=== PATIENT | female | born 1990 | race Caucasian/White ===

== ENCOUNTER 2020-04-29 10:35 | Outpatient (CLI) | payer OTHER, SELFPAY ==
[2020-04-29 18:45] LABS: Basophils Percent Auto 0.3 % (0.2-1.2); Eosinophils Percent Auto 0.6 % (0-4.4); Hematocrit 35.5 % (37.0-47.0); Hemoglobin 11.7 g/dL (12.0-15.0); Immature Granulocyte Absolute 0.02 K/mm3 (0.00-0.031); Immature Granulocyte Percent A 0.3 % (0-0.5); Lymphocytes Absolute Auto 1.41 K/mm3 (0.9-3.2); Lymphocytes Percent Auto 20.6 % (18.3-44.2); Mean Corpuscular Hemoglobin 30.1 pg (26-34); Mean Corpuscular Volume 91.3 fl (80-100); Mean Platelet Volume 12.3 fl (7.4-10.4); Monocytes Absolute Auto 0.4 K/mm3 (0.1-0.6); Monocytes Percent Auto 5.3 % (2.6-8.5); Neutrophils Percent Auto 72.9 % (45.5-73.1); Platelet Count Result 200 k/mm3 (150-375); Red Blood Count 3.89 M/mm3 (4.2-5.4); Red Cell Distribution Width 12.7 % (11.5-14.5); White Blood Count 6.8 K/mm3 (4.5-10.0)
[2020-04-29 19:30] LABS: Thyroid Stimulating Hormone 0.734 uIU/mL (0.465-4.680)
[2020-04-29 19:31] LABS: Hepatitis B Surface Antigen Negative (Negative); Rubella IgG Antibody 23.5 IU/ML
[2020-04-29 19:33] LABS: Vitamin D 25 Hydroxy 44.4 ng/mL
[2020-04-29 19:41] LABS: HIV 1/2 Ab P24 Ag Result Negative (Negative)
[2020-04-29 19:47] LABS: Hepatitis C Virus Antibody Negative (Negative)
[2020-05-01 09:06] LABS: Rapid Plasma Reagin Non-Reactive (NonReactive)
== END 2020-04-29 10:36 | disposition home or self-care (01) ==
PROVIDERS: PCP Student in an Organized Health Care Education/Training Program; Visit Provider Student in an Organized Health Care Education/Training Program
DX: Z34.90 Encounter for supervision of normal pregnancy, unspecified, unspecified trimester (principal); Z3A.00 Weeks of gestation of pregnancy not specified
CPT/HCPCS: 36415; 82306; 84443; 85025; 86592; 86703; 86762; 86787; 86803; 86850; 86900; 86901; 87340; G0432

== ENCOUNTER 2020-09-06 07:53 | Outpatient (CLI) | payer OTHER, SELFPAY ==
[2020-09-06 19:21] LABS: Basophils Percent Auto 0.4 % (0.2-1.2); Eosinophils Absolute Auto 0.1 K/mm3 (0-0.3); Eosinophils Percent Auto 1.6 % (0-4.4); Hematocrit 33.6 % (37.0-47.0); Hemoglobin 10.5 g/dL (12.0-15.0); Immature Granulocyte Absolute 0.04 K/mm3 (0.00-0.031); Immature Granulocyte Percent A 0.6 % (0-0.5); Lymphocytes Absolute Auto 1.37 K/mm3 (0.9-3.2); Lymphocytes Percent Auto 19.8 % (18.3-44.2); Mean Corpuscular HGB Conc 31.3 g/dl (32-36); Mean Corpuscular Hemoglobin 29.5 pg (26-34); Mean Corpuscular Volume 94.4 fl (80-100); Mean Platelet Volume 12.7 fl (7.4-10.4); Monocytes Absolute Auto 0.4 K/mm3 (0.1-0.6); Monocytes Percent Auto 6.4 % (2.6-8.5); Neutrophils Absolute Auto 4.9 K/mm3 (1.3-6.7); Neutrophils Percent Auto 71.2 % (45.5-73.1); Platelet Count Result 135 k/mm3 (150-375); Red Blood Count 3.56 M/mm3 (4.2-5.4); Red Cell Distribution Width 12.6 % (11.5-14.5); White Blood Count 6.9 K/mm3 (4.5-10.0)
[2020-09-06 19:26] LABS: Glucose 1 Hour PP 50gm Dose 100 mg/dL
== END 2020-09-06 07:54 | disposition home or self-care (01) ==
LOC: ANHBWCLAB 07:55
PROVIDERS: PCP Student in an Organized Health Care Education/Training Program; Visit Provider Student in an Organized Health Care Education/Training Program
DX: Z34.82 Encounter for supervision of other normal pregnancy, second trimester (principal); Z3A.00 Weeks of gestation of pregnancy not specified
CPT/HCPCS: 36415; 82947; 85025

== ENCOUNTER 2020-09-13 09:25 | Observation (INO) | payer OTHER, SELFPAY ==
[2020-09-13] VITALS (8 sets, daily range): BP systolic 90–112; BP diastolic 53–69; PULSE 78–106; BMI 23.5
--- NOTE | 2020-09-13 09:50 | OBADM ---
This patient, Della Kenyon, admitted to the OB room [facility] for observation. Patient/family oriented to hospital policies and general routines including ID bracelet, bed and alarms, visiting hours, pain management, procedures, bathroom and other care routines, personal items, smoking policy, room service/diet, and visiting hours. Patient/Family are encouraged to report perceived risks to care and to ask questions if they do not understand what they are told or what they should do.
[2020-09-13 10:06] LABS: Add Urine Microscopic? YES; Appearance Urine Cloudy (Clear); Bacteria Urine 2+ /hpf; Bilirubin Urine Negative (Negative); Blood Urine Negative (Negative); Color Urine Yellow (Yellow); Glucose Urine UA Negative (Negative); Ketones Urine Negative (Negative); Leukocyte Esterase Ur 3+ LEU/UL (NEGATIVE); Mucus Urine Rare /lpf; Nitrate Urine Negative (Negative); Protein Urine Negative (Negative); RBC Urine 0-2 /hpf (0-2); Specific Grav Ur 1.012 (1.001-1.035); Squamous Epithelial Cell Urine Many /hpf (Few); Urobilinogen Urine Negative mg/dL (<2.0)
--- NOTE | 2020-09-13 11:32 | PC.NURSE ---
Dr Diaz notified of contractions and UA results. Orders received.
[2020-09-13] MEDS: TERBUTALINE SULFATE 1 MG/ML VIAL 0.25 MG SUB-Q (11:49)
--- NOTE | 2020-10-06 14:27 | P.PNOB_ITS ---
OB - Triage/Final Diagnosis Visit Information Comments/Additional reasons for admission: I have assessed the risk for this patient, Della Kenyon, and determined that she would benefit from observation care. Evaluation Laboratory results: Laboratory Tests 09/13/20 09:47 Urine Color Yellow Urine Appearance Cloudy H Urine pH 7.0 Ur Specific [place] 1.012 Urine Protein Negative Urine Glucose (UA) Negative Urine Ketones Negative Ur Blood (Man) Negative Urine Nitrate Negative Urine Bilirubin Negative Urine Urobilinogen Negative Ur Leukocyte Esterase 3+ H Urine RBC 0-2 Urine WBC 7-9 H Ur Squamous Epith Cells Many H Urine Bacteria 2+ H Hyaline Casts 1-2 Urine Mucus Rare Final Diagnosis (1) contractions: Code(s): O47.00 - False labor before 37 completed weeks of gestation, unspecified trimester Status: Acute
== END 2020-09-13 13:55 | disposition home or self-care (01) ==
PROVIDERS: Admitting Provider Student in an Organized Health Care Education/Training Program; Visit Provider Student in an Organized Health Care Education/Training Program
DX: O47.00 False labor before 37 completed weeks of gestation, unspecified trimester (principal); Z3A.00 Weeks of gestation of pregnancy not specified
CPT/HCPCS: 81001; 87086; 96372; G0378; G0379; J3105

== ENCOUNTER 2020-09-16 19:15 | Observation (INO) | payer OTHER, SELFPAY ==
[2020-09-16 19:30] VITALS: BP 104/66; PULSE 87
[2020-09-16 19:36] VITALS: RESP 18; TEMP 36.7
[2020-09-16 20:00] VITALS: BMI 23.4
[2020-09-16] MEDS: NIFEdipine 10 MG CAPSULE PO (20:12)
[2020-09-16 20:15] VITALS: BP 101/66; PULSE 95
[2020-09-16 20:20] VITALS: BP 97/59; PULSE 88
[2020-09-16 20:40] VITALS: BP 98/64; PULSE 76
[2020-09-16 21:00] VITALS: BP 95/61; PULSE 88
--- NOTE | 2020-10-04 15:09 | PM.OBTRLD ---
OB - Triage/Final Diagnosis Visit Information Comments/Additional reasons for admission: I have assessed the risk for this patient, Della Kenyon, and determined that she would benefit from observation care. Final Diagnosis (1) contractions: Code(s): O47.00 - False labor before 37 completed weeks of gestation, unspecified trimester Status: Acute
== END 2020-09-16 21:45 | disposition home or self-care (01) ==
PROVIDERS: Admitting Provider Obstetrics & Gynecology; Visit Provider Obstetrics & Gynecology
DX: O47.03 False labor before 37 completed weeks of gestation, third trimester (principal); Z3A.33 33 weeks gestation of pregnancy
CPT/HCPCS: A9270; G0378; G0379

== ENCOUNTER 2020-10-05 13:27 | Outpatient (CLI) | payer OTHER, SELFPAY ==
[2020-10-05 20:06] LABS: Basophils Percent Auto 0.4 % (0.2-1.2); Eosinophils Absolute Auto 0.1 K/mm3 (0-0.3); Eosinophils Percent Auto 1.6 % (0-4.4); Hematocrit 33.6 % (37.0-47.0); Hemoglobin 10.5 g/dL (12.0-15.0); Immature Granulocyte Absolute 0.04 K/mm3 (0.00-0.031); Immature Granulocyte Percent A 0.4 % (0-0.5); Lymphocytes Absolute Auto 1.54 K/mm3 (0.9-3.2); Lymphocytes Percent Auto 17.3 % (18.3-44.2); Mean Corpuscular HGB Conc 31.3 g/dl (32-36); Mean Corpuscular Hemoglobin 29.2 pg (26-34); Mean Corpuscular Volume 93.6 fl (80-100); Mean Platelet Volume 12.9 fl (7.4-10.4); Monocytes Absolute Auto 0.6 K/mm3 (0.1-0.6); Monocytes Percent Auto 6.6 % (2.6-8.5); Neutrophils Absolute Auto 6.6 K/mm3 (1.3-6.7); Neutrophils Percent Auto 73.7 % (45.5-73.1); Platelet Count Result 130 k/mm3 (150-375); Red Blood Count 3.59 M/mm3 (4.2-5.4); Red Cell Distribution Width 13.8 % (11.5-14.5); White Blood Count 8.9 K/mm3 (4.5-10.0)
[2020-10-05 20:53] LABS: HIV 1/2 Ab P24 Ag Result Negative (Negative)
[2020-10-06 08:36] LABS: Rapid Plasma Reagin Non-Reactive (NonReactive)
== END 2020-10-05 13:28 | disposition home or self-care (01) ==
LOC: ANHBWCLAB 13:28
PROVIDERS: Visit Provider Student in an Organized Health Care Education/Training Program
DX: Z34.90 Encounter for supervision of normal pregnancy, unspecified, unspecified trimester (principal); Z3A.00 Weeks of gestation of pregnancy not specified
CPT/HCPCS: 36415; 85025; 86592; 86703; G0432

== ENCOUNTER 2020-10-12 19:00 | Inpatient (IN) | payer OTHER, SELFPAY ==
[2020-10-12] VITALS (77 sets, daily range): BP systolic 87–126; BP diastolic 51–74; PULSE 64–100; RESP 18; TEMP 36.3–37.6; O2SAT 97–100; BMI 24.9
[2020-10-12 19:40] LABS: Basophils Percent Auto 0.3 % (0.2-1.2); Eosinophils Absolute Auto 0.1 K/mm3 (0-0.3); Eosinophils Percent Auto 0.8 % (0-4.4); Hematocrit 32.5 % (37.0-47.0); Hemoglobin 10.6 g/dL (12.0-15.0); Immature Granulocyte Absolute 0.02 K/mm3 (0.00-0.031); Immature Granulocyte Percent A 0.3 % (0-0.5); Immature Platelet Fraction Pct 14.6 % (0.9-11.2); Lymphocytes Absolute Auto 1.32 K/mm3 (0.9-3.2); Lymphocytes Percent Auto 16.6 % (18.3-44.2); Mean Corpuscular HGB Conc 32.6 g/dl (32-36); Mean Corpuscular Hemoglobin 29.5 pg (26-34); Mean Corpuscular Volume 90.5 fl (80-100); Mean Platelet Volume 13.3 fl (7.4-10.4); Monocytes Absolute Auto 0.4 K/mm3 (0.1-0.6); Monocytes Percent Auto 5.4 % (2.6-8.5); Neutrophils Absolute Auto 6.1 K/mm3 (1.3-6.7); Neutrophils Percent Auto 76.6 % (45.5-73.1); Platelet Count Result 136 k/mm3 (150-375); Red Blood Count 3.59 M/mm3 (4.2-5.4)
[2020-10-12] MEDS: FAMOTIDINE 20 MG/2 ML VIAL IV PUSH (20:10)
[2020-10-12] MEDS: LACTATED RINGERS 1,000 ML 125 ML IV CONT ×2 (20:14→20:16)
--- NOTE | 2020-10-12 20:16 | WPDANESEPPF ---
Anes - Initial Pre Proc Eval Procedure: labor epidural Date/Time: 10/12/20 20:16 Surgeon: Sharon Reilly MD Pre Op Diagnosis: labor pain Pre Op Diagnosis: Labor Patient Data Age: 30 Gender: F Height: Weight: Last Vital Signs Pulse 82 10/12/20 20:15 BP 118/68 10/12/20 20:15 Pulse Ox 100 10/12/20 20:14 Allergies Allergy/AdvReac Type Severity Reaction Status Date / Time PINE NEEDLE OIL Allergy Intermediate SWELLING,DIFFICULTLY Uncoded 10/05/20 15:29 BREATHING Home Medications Medication Instructions Recorded Confirmed Type prenat.vits,luis,zhb-gixk-tmkif 1 tablet PO DAILY 03/04/20 08/18/20 History famotidine 20 mg tablet 20 mg PO DAILY 10/12/20 History Laboratory Tests 10/12/20 10/12/20 19:33 19:33 WBC 8.0 K/mm3 K/mm3 (4.5-10.0) RBC 3.59 M/mm3 L M/mm3 (4.2-5.4) Hgb 10.6 g/dL L g/dL (12.0-15.0) Hct 32.5 % L % (37.0-47.0) MCV 90.5 fl fl (80-100) MCH 29.5 pg pg (26-34) MCHC 32.6 g/dl g/dl (32-36) RDW 13.0 % % (11.5-14.5) Plt Count 136 k/mm3 L k/mm3 (150-375) MPV 13.3 fl H fl (7.4-10.4) Immature Gran % (Auto) 0.3 % % (0-0.5) Neut % (Auto) 76.6 % H % (45.5-73.1) Lymph % (Auto) 16.6 % L % (18.3-44.2) [place] % (Auto) 5.4 % % (2.6-8.5) Eos % (Auto) 0.8 % % (0-4.4) Baso % (Auto) 0.3 % % (0.2-1.2) Lymph # (Auto) 1.32 K/mm3 K/mm3 (0.9-3.2) [place] # (Auto) 0.4 K/mm3 K/mm3 (0.1-0.6) Eos # (Auto) 0.1 K/mm3 K/mm3 (0-0.3) Baso # (Auto) 0.0 K/mm3 K/mm3 (0.0-0.1) Abs Immat Gran (auto) 0.02 K/mm3 K/mm3 (0.00-0.031) Absolute Neuts (auto) 6.1 K/mm3 K/mm3 (1.3-6.7) Absolute Nucleated RBC 0.0 K/mm3 K/mm3 (0.0-0.012) Nucleated RBC % 0.0 % % (0.0-0.2) % Immature Plt Fraction 14.6 % H % (0.9-11.2) RPR Pending Patient hx anesthesia problems: none Family hx anesthesia problems: none PMFSH Past Medical History Medical History Anxiety Missed x2 02/2016, 10/2015 Vaginal delivery x2 08/02/2018 03/27/2017 Family History Family History Mother Anemia Grandparent Acute myocardial infarction Family history of cardiovascular disease Sibling Hypothyroidism Social History Social History Smoking status: Never smoker Alcohol intake: current Alcohol use details: 0ne to two drinks per month. Substance use: unknown Spiritual care concerns: No Anes - Eval Final PreProcedure Day of Procedure 10/12/20 20:16 Patient weight: normal Heart: regular rate and rhythm Lungs: clear to auscultation and normal air movement Airway: Mallampati scale class II Neurological: alert and oriented ASA classification: II Emergent: no Anesthetic plan: proceed Anesthesia type and monitoring: regional epidural and standard monitoring Informed Consent: The patient's anesthetic plan and its attendant risks and benefits were discussed with the patient/family/POA. Questions were solicited and answers provided to the satisfaction of the patient/family/POA.
--- NOTE | 2020-10-12 20:19 | LDADM ---
This patient, Della Kenyon, was admitted to Labor/Delivery/Recovery 105 on 10/12/20 at 19:00. Plans for labor, pain management and were discussed with patient. Patient/family oriented to hospital policies and general routines including ID bracelet, bed and alarms, visiting hours, pain management, procedures, bathroom and other care routines, personal items, smoking policy, room service/diet and guest tray routines, infant security routines, and visiting hours. Patient/Family are encouraged to report perceived risks to care and to ask questions if they do not understand what they are told or what they should do. See OBIX for further documentation.
--- NOTE | 2020-10-12 20:20 | PM.IMHP ---
H&P: HPI History of Present Illness Date/Time: 10/12/20 20:20 Patient is a 30yo LMP 01/18/20 currently 37w2d gestation with POLLO 10/31/20. Patient is dated by ultrasound on 03/09/20 at 6 weeks gestation. Patient presents to L&D with complaints of contractions. She reports frequent contractions for past few days. She was seen in office for routine visit this morning and was noted to be 1 cm dilated. Upon arrival to L&D, patient was 4cm dilated. Decision made to admit patient in active labor. Denies any vaginal bleeding or leakage of fluid. Reports good movement. Chief Complaint: Labor Review of Systems Review of Systems: All systems reviewed & are unremarkable except as noted in HPI and below Constitutional: Constitutional: Reports as per HPI, Reports no additional constitutional complaints, Denies chills, Denies fever(s), Denies headache(s) and Denies night sweats Eyes: Eyes: Reports as per HPI and Reports no additional eye complaints ENT: Reports system reviewed and no additional complaints, except as documented, Reports as per HPI, Reports Normal hearing present and Denies headache(s) Cardiovascular: Cardiovascular: Reports as per HPI, Reports no additional cardiovascular complaints, Denies chest pain and Denies dyspnea Respiratory: Respiratory: Reports as per HPI, Reports no additional respiratory complaints, Denies cough and Denies dyspnea Gastrointestinal: Gastrointestinal: Reports as per HPI, Reports no additional gastrointestinal complaints, Denies abdominal pain, Denies change in bowel habits, Denies change in stool character, Denies nausea and Denies vomiting Genitourinary: Genitourinary: Reports no additional female genitourinary complaints, Reports as per HPI, Denies abnormal vaginal bleeding, Denies genital lesions, Denies hot flashes, Denies dyspareunia, Denies pelvic pain, Denies sexual dysfunction, Denies urinary incontinence, Denies vaginal discharge, Denies vaginal dryness and Denies vaginal odor Musculoskeletal: Musculoskeletal: Reports no additional musculoskeletal complaints and Reports as per HPI Integumentary/Breasts: Skin/Breast: Reports system reviewed and no additional complaints, except as docu, Reports as per HPI, Denies breast pain and Denies nipple discharge Neurologic: Reports system reviewed and no additional complaints, except as documented, Reports as per HPI, Reports Normal hearing present and Denies headache(s) Psychiatric: Psychiatric: Reports no additional psychiatric complaints, Reports as per HPI, Denies anxiety and Denies depression Endocrine: Endocrine: Reports no additional endocrine complaints and Reports as per HPI Hematologic/Lymphatic: Hematologic/Lymphatic: Reports no additional hematologic/lymphatic complaints and Reports as per HPI Allergic/Immunologic: Allergic/Immunologic: Reports no additional allergic/immunologic complaints and Reports as per HPI PMFSH Past Medical History Medical History Anxiety Missed x2 02/2016, 10/2015 Vaginal delivery x2 08/02/2018 03/27/2017 Family History Family History Mother Anemia Grandparent Acute myocardial infarction Family history of cardiovascular disease Sibling Hypothyroidism Social History Social History Smoking status: Never smoker Alcohol intake: current Alcohol use details: 0ne to two drinks per month. Substance use: unknown Spiritual care concerns: No Meds Home Medications and Allergies Home Medications Medication Instructions Recorded Confirmed Type prenat.vits,luis,tly-cjkk-arpys 1 tablet PO DAILY 03/04/20 08/18/20 History famotidine 20 mg tablet 20 mg PO DAILY 10/12/20 History Allergies Allergy/AdvReac Type Severity Reaction Status Date / Time PINE NEEDLE OIL Allergy Intermediate SWELLING,DIFFICULTLY Uncoded 08
--- NOTE | 2020-10-12 20:31 | WPDHPUPDATE1 ---
History and Physical Update Update Date/Time: 10/12/20 20:31 History and Physical has been reviewed, including an updated exam of the patient. There are NO changes in the patient's condition. Risks, benefits, and alternatives have been discussed and questions answered. Patient agrees to proceed with procedure.
[2020-10-12 23:35] LABS: HIV 1/2 Ab P24 Ag Result Negative (Negative)
[2020-10-13] VITALS (80 sets, daily range): BP systolic 78–114; BP diastolic 45–80; PULSE 60–112; RESP 16–18; TEMP 36.4–37.1; O2SAT 97–100
[2020-10-13] MEDS: LACTATED RINGERS 1,000 ML 125 ML IV CONT ×2 (00:40→03:22)
--- NOTE | 2020-10-13 03:24 | PM.OBPNLAB ---
Pain Control Date/time seen: 10/13/20 03:24 Patient doing well. Comfortable s/p epidural. SVE /-1. AROM performed. Clear fluid noted. EFM category 1. [employer] [employer] shows contractions q1-2 mins. Continue pitocin.
--- NOTE | 2020-10-13 04:06 | PM.OBPRVD ---
OB - Delivery Note Procedure Delivery date: 10/13/20 Procedure: Patient is a 30-year-old now who presented to labor and delivery on the evening of 10/12/2020 at 37 weeks 2 days gestation with complaints of contractions. Upon presentation to labor and delivery, patient was noted to be 4 cm dilated. Patient was admitted in active labor. Patient was uncomfortable and requested an epidural for pain management which was placed without difficulty. 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 Pitocin was started and slowly titrated. Patient continued to make slow, however, progressive cervical change. Artificial rupture membranes was performed at 3:17 a.m. Clear amniotic fluid was noted. Patient was 7 cm dilated at that time. Patient progressed to fully dilated quickly afterwards and was noted to be complete at 3:38 a.m. Patient was prepped and draped for delivery. Patient was encouraged to push and at 3:44 a.m., patient delivered head atraumatically and without difficulty in DIAMOND presentation. Occiput restituted to maternal left side. With subsequent push, the infant's neck, shoulders, and rest of body delivered without difficulty. The infant's nose and mouth were suctioned with bulb suction. The was crying spontaneously. The infant was placed on maternal abdomen where care was assumed by awaiting nursing staff. Delayed cord clamping was performed for approximately 60 seconds. The voided spontaneously. The cord was clamped and cut. A segment of cord was collected for cord gases. Cord blood was collected. The placenta was delivered spontaneously and intact. Uterine fundus was noted to be firm with massage. On inspection, no lacerations were noted. Estimated blood loss for entire delivery was 100 cc. The was a live-born female , Apgars 8 and 9, weight pending. Both mother and baby doing well at end of delivery. Delivery augmentation: rupture of membranes and pitocin Delivery monitor: external FHT and external uterine Route of delivery: Laceration Description: None Specimen: Yes (cord blood and cord gases) Quantitative Blood Loss (ml): 100 Anesthesia type: Epidural Disposition: floor Complications: No immediate complications [place] Baby Date of : 10/13/20 Time of : 03:44 Weeks of gestation at delivery: 37 (37.3) Infant gender: Female presentation: vertex position: Left Occiput Anterior Placenta delivery description: Spontaneous cord vessel description: 3 Vessels, Clamped/Cut and Delayed Cord Clamping (x60s) score one minute: 8 score five minutes: 9
[2020-10-13] MEDS: OXYTOCIN 30 UNITS/NS 500 ML 30 UNITS/500 ML BAG 125 UNITS IV CONT (04:22)
[2020-10-13] MEDS: WITCH HAZEL 40 PADS 1 PAD TOPICAL (05:43)
[2020-10-13] MEDS: BENZOCAINE 20% AER SPR (*SP) 56 GM CAN 1 SPRAY TOPICAL (05:43)
[2020-10-13] MEDS: MULTIVIT/MIN/PREN/FOL AC/IRON TABLET 1 TAB PO (08:45)
[2020-10-13] MEDS: IBUPROFEN 600 MG TABLET PO ×3 (08:45→21:57)
[2020-10-13] MEDS: DOCUSATE SODIUM 100 MG CAPSULE PO (08:45)
--- NOTE | 2020-10-13 09:05 | PC.NURSE ---
Mother called out for assist with feeding, reporting is sleepy. Demonstrated stimulation techniques to wake for feeding. easily awoken with feeding cues noted. is able to freely thrust tongue past gum ridge and flange both lips. Skin is intact on both nipples, no redness and bruising noted. Discussed the near term and possible precautions of weak latch, sleepy feedings, needing to wake each feeding, inability to maintain latch and poor milk transfer which increases chance for increased weight loss, jaundice and low milk supply. Stressed the importance of adequate breast stimulation by pumping, self-expression and skin to skin. Mother reports last child was 37 weeks acting the same. Reviewed infant feeding cues, frequencies, duration of feedings, feeding elimination flow sheet, and signs of adequate intake. Assisted with infant to breast. Reviewed positioning/alignment in cross cradle, holding breast in ?U? hold and guided asymmetrical latch on. Discussed rational for each. Once was able to latch correctly mother switched to cradle position. Reviewed signs of a correct latch, effective nursing and suck swallow ratio. nursed eagerly with steady draws and occasional swallowing for bursts followed with long pausing. Reviewed the difference of effective vs ineffective nursing. Suggested mother stimulate while feeding to increase stimulation, increase intake and to assist with maintaining deep latch. would slip to shallow latch, mother reports tenderness. Demonstrated how to adjust latch more deeply while feeding. Advised holding in cross cradle would assist with maintaining deep latch. Mother reports she can feel change in latch and has no tenderness. Nipple care reviewed of lanolin after feedings, warm compresses as needed.
[2020-10-13 09:27] LABS: Rapid Plasma Reagin Non-Reactive (NonReactive)
[2020-10-13] MEDS: LANOLIN (LANSINOH) 7.5 GM CREAM 1 APPLIC TOPICAL (11:45)
[2020-10-13] MEDS: ACETAMINOPHEN 325 MG TABLET 650 MG PO ×2 (15:55→21:57)
[2020-10-14] VITALS: BP 95/53; PULSE 71; RESP 16; TEMP 36.6; O2SAT 97
[2020-10-14] MEDS: IBUPROFEN 600 MG TABLET PO ×2 (03:48→09:42)
[2020-10-14] MEDS: ACETAMINOPHEN 325 MG TABLET 650 MG PO ×2 (03:48→09:41)
[2020-10-14 04:56] LABS: Hematocrit 30.3 % (37.0-47.0); Hemoglobin 9.7 g/dL (12.0-15.0)
[2020-10-14 07:35] VITALS: BP 99/67; PULSE 81; RESP 16; TEMP 36.3; O2SAT 99
--- NOTE | 2020-10-14 08:37 | WPDANLDPN2 ---
Anes-Prog Note L&D Date/Time: 10/14/20 08:37 Comfortable throughout: labor and delivery Neuraxial method: epidural Epidural/Spinal procedure site: clean & non-tender Neuro status: Neuro function grossly intact. Cardiovascular status: normal Respiratory status: normal Airway patency: baseline Mental status: baseline Post-Op hydration status: normal Vital Signs: Last Vital Signs Temp 36.3 C L 10/14/20 07:35 Pulse 81 10/14/20 07:35 Resp 16 10/14/20 07:35 BP 99/67 L 10/14/20 07:35 Pulse Ox 99 10/14/20 07:35 Pain score (VAS): 0 Post-procedural complaints: none Patient feedback: Patient satisfied with anesthetic care.
--- NOTE | 2020-10-14 09:05 | PM.OBPNVD ---
OB - PN: Subj Subjective Date/time seen: 10/14/20 09:05 Patient doing well this morning. Reports moderate cramping, however, pain well controlled medication. Minimal lochia. Ambulating without difficulty. OB - PN: Obj Data Labs CBC & Chem 7: 10/14/20 03:47 Labs: Laboratory Results - last 24 hr 10/12/20 10/14/20 19:33 03:47 Hgb 9.7 L Hct 30.3 L RPR Non-reactive OB - PN A/P Assessment and Plan (1) Normal spontaneous vaginal delivery: Code(s): O80 - Encounter for full-term uncomplicated delivery Status: Acute Assessment and Plan: PPD#1 doing well continue routine care dc home today emergency precautions reviewed Time Spent With Patient Time: Total time spent is greater than 50% in coordination of care (as documented) at patient's floor/unit and/or counseling patient: Exam Const: General: cooperative, healthy appearing, comfortable and no acute distress GI: Inspection: non-distended GI Palp: Yes Soft to palpation and No Tenderness to palpation present (GI) Other: fundus firm below umbilicus Extrem: Right lower extremity: no edema Left lower extremity: no edema Other: no calf tenderness
--- NOTE | 2020-10-14 09:12 | PM.OBDSVD ---
DS: Admitting Diagnosis Admitting Diagnosis Labor OB - DS: Summary OB Procedures : None OB Procedures Intrapartum: Spontaneous Vag Delivery OB Procedures: : None Time Spent with Patient Time attestation: Total time spent providing and/or coordinating discharge services: DS: Data Data Completed and Pending Labs on day of discharge: Labs from last 24 hours 10/14/20 10/12/20 03:47 19:33 Hgb 9.7 L Hct 30.3 L RPR Non-reactive Discharge Plan Discharge Attending physician on discharge: Sharon Reilly Discharging Clinician: Sharon Reilly Anticipated Discharge Date/Time: 10/14/20 09:13 Patient Disposition: Home, Self-Care Activity: as tolerated and pelvic rest Diet: regular Discharge Instructions: Call office ([phone]) to schedule a visit in 4-6 weeks. You may take Ibuprofen 600mg every 6 hours as needed for pain. Pain medication may make you constipated. It may be helpful to take an vrdq-jeu-[id number] stool softener, such as Colace and/or Senokot, along with the pain medication to help lessen constipation. Call office or go to ED for pain not controlled with medication, headache, chest pain, shortness of breath, fever, chills, persistent nausea or vomiting, severe abdominal pain, heavy vaginal bleeding >2 pads/hour, foul vaginal discharge or odor, or problems with your breasts. Education: Mom and Baby Guide Given to: Mother Follow-Up: Call your delivering provider's office for an appointment to be seen in: 4-6 Weeks Mom and baby should come to the [facility] for the follow-up appointment. Appointment Date/Time:Thursday, October 15, 2020 at 11:00 am What to expect at your follow-up visit: Blood Pressure Check Physical Assessment Call [phone] if you are unable to keep your appointment time. BREAST CARE: * Wear a snug supportive bra. * For engorgement discomfort: Breast Feeding: * Apply warm moist washcloths * Express milk as needed to relieve engorgement * Wear loose clothing * For sore nipples: * Identify correct latch-on * Apply warm moist washcloths before and after nursing * Air dry nipples after nursing * May apply Lansinoh cream to nipples EPISIOTOMY/PERINEAL CARE: * Until bleeding stops, use your noam bottle after urinating * Change your pad frequently throughout the day * You may take sitz baths several times a day (fill your bathtub with warm water and soak for 20 minutes.) Do NOT bathe in the water * No tub baths until seen by your physician - You may shower ACTIVITY: * Rest as much as possible. * Do not exercise or lift anything heavier than your baby (such as laundry or other children.) * Avoid stairs or driving as much as possible. * Do not put anything into the vagina. No douching, tampons, or sexual activity until seen by physician. NOTIFY PHYSICIAN IF YOU HAVE ANY QUESTIONS OR IF ANY OF THE FOLLOWING SYMPTOMS OCCUR: * If your vaginal area becomes red, swollen, or more painful than what you have experienced in the hospital. * If your vaginal bleeding becomes foul smelling. * If your vaginal bleeding becomes more heavy than a period or if your bleeding changes from pink to bright red. However, you may pass an occasional walnut-sized clot once or twice for the first week . * If you experience a sharp, shooting pain in your calves. * If you discover a hard, reddened area on your breast or if you experience flu-like symptoms. DIET: * Eat regular, well-balanced meals. * Drink plenty of fluids daily. If , drink to thirst. Patient Instructions: Antibiotic Form, Vaginal Delivery (DC) Stand Alone Forms: General Discharge Information Follow-up/Referrals: Sharon Reilly MD [Physician] - Discharge Medications: Continued prenat.vits,luis,mjv-duui-bozbm Tablet 1 tablet PO DAILY RF: 0 Discontinued f
--- NOTE | 2020-10-14 09:25 | PC.NURSE ---
Observed mother is able to independently latch with appropriate positioning/alignment. She denies any nipple discomfort, is feeding as required and waking infant to feed if needed. has had at least 8 effective feedings in the past 24 hours, and is currently meeting outcomes for weight, output, jaundice and feeding frequencies. Mother states she feels confident to continue effective at home. Reviewed transition to breast milk, signs of adequate intake, and engorgement/relief. Instructed to call ICP if intake/output less than required. Reviewed regular medications mother is taking. Information provided per Traci. Reviewed community resources on the [facility] website and in the Mom/Baby guide. Information on outpatient services provided. Mother has no further questions at this time.
[2020-10-14 09:30] VITALS: PULSE 81; RESP 16; O2SAT 99
[2020-10-14] MEDS: DOCUSATE SODIUM 100 MG CAPSULE PO (09:41)
[2020-10-14] MEDS: POLYSACCHARIDE IRON COMPLEX 150 MG CAPSULE PO (09:42)
[2020-10-14] MEDS: MULTIVIT/MIN/PREN/FOL AC/IRON TABLET 1 TAB PO (09:42)
[2020-10-15 11:24] VITALS: BP 104/78; PULSE 84; RESP 18; TEMP 36.9
== END 2020-10-14 10:53 | disposition home or self-care (01) | DRG 807 ==
LOC: ANHLDR 20:00 → ANHOB2 10-13 07:06
PROVIDERS: Admitting Provider Student in an Organized Health Care Education/Training Program; Visit Provider Student in an Organized Health Care Education/Training Program
DX: O80 Encounter for full-term uncomplicated delivery (principal); Z37.0 Single live birth; Z3A.37 37 weeks gestation of pregnancy
CPT/HCPCS: 36415; 85014; 85018; 85025; 85055; 86592; 86703; 86850; 86900; 86901; A9270; G0432; J2590; J2795; J7120

== ENCOUNTER 2021-04-06 08:34 | Emergency (ER) | payer OTHER, SELFPAY ==
[2021-04-06 08:39] VITALS: BP 93/52; PULSE 90; RESP 18; TEMP 36.7; O2SAT 99
--- NOTE | 2021-04-06 08:46 | ED.FEVER ---
HPI - Fever General Chief Complaint: Upper Respiratory Infection Stated Complaint: fever tired head and body aches Time Seen by Provider: 04/06/21 08:40 Source: patient and RN notes reviewed History of Present Illness HPI Narrative: Patient is a 31-year-old female who presents the urgent care with complaints of fever, body aches and fatigue. Patient states that she went [place] this and started having symptoms on Saturday. States that no one else in the home has been ill. Patient denies any urinary symptoms, nausea, vomiting, diarrhea. Patient has been taking Tylenol for her fever which tends to help with the symptoms and that she spikes a fever of 102-103F. Patient has not recently had COVID nor has she had the vaccine. No other acute complaints. No acute distress noted. Patient read the plan of care. Some parts of this dictation were generated by voice recognition software and may contain typographical and/or grammatical inaccuracies. Related Data Home Medications Medication Instructions Recorded Confirmed No Home Medications 04/06/21 04/06/21 Allergies Allergy/AdvReac Type Severity Reaction Status Date / Time PINE NEEDLE OIL Allergy Intermediate SWELLING,DIFFICULTLY Uncoded 04/06/21 08:40 BREATHING Review of Systems Review of Systems: CONSTITUTIONAL: Reports of fever, chills, fatigue EYES: Denies visual changes, redness, or discharge. ENT: Denies rhinorrhea, congestion, sore throat, or otalgia. CARDIOVASCULAR: Denies chest pain, palpitations, or edema. RESPIRATORY: Denies cough or dyspnea. GASTROINTESTINAL: Denies abdominal pain, nausea, vomiting, or diarrhea. GENITOURINARY: Denies dysuria or hematuria. SKIN: Denies rash or itching. MUSCULOSKELETAL: Denies back pain, joint pain. Reports body aches NEUROLOGIC: Denies headache, numbness, or weakness. All other systems reviewed are negative, except as documented in HPI. [facility] Past Medical History Medical History (Updated 04/06/21 @ 09:09 by ROOSEVELT Cilfford) Anxiety Missed x2 02/2016, 10/2015 Vaginal delivery x3 08/02/2018 03/27/2017 Family History Family History Mother Anemia Grandparent Acute myocardial infarction Family history of cardiovascular disease Sibling Hypothyroidism Social History Social History Smoking status: Never smoker Alcohol intake: current Alcohol use details: 0ne to two drinks per month. Substance use: unknown Spiritual care concerns: No Comments At the time of my signature, I reviewed and agree with the nursing past medical, surgical, social, and family history. There is no relevant family history pertinent to the patient complaint. Exam Narrative: GENERAL: This is a well-nourished, well-developed patient, in no apparent distress. HEAD: normocephalic, atraumatic. EYES: PERRL. Sclera clear/white. Vision is grossly intact. EARS: External ears normal, auditory canals clear and without drainage, TMs normal without perforation. Hearing grossly intact. NOSE: External nose normal with no obvious nasal discharge, nares without redness, no rhinorrhea. THROAT: Mucous membranes moist, posterior pharynx clear. Mild postnasal drainage NECK: Neck supple CARDIOVASCULAR: Regular rate and rhythm without murmurs, gallops, or rubs. RESPIRATORY: Clear to auscultation. Breath sounds equal bilaterally. No wheezes, rales, or rhonchi. SKIN: warm, intact with no suspicious lesions or rash, good texture and turgor. NEURO: awake, alert, and oriented to person, place and time. There were no obvious focal neurologic abnormalities. EXTREMITIES: No clubbing, cyanosis, or edema. Course Course Level of Care: Express Care Visit Vital Signs Vital signs: Vital Signs Temperature 98.0 F 04/06/21 08:39 Pulse Rate 90 04/06/21 08:39 Respiratory Rate 18 04/06/21 08:39 Blood Pr
[2021-04-07 13:01] LABS: SARS-CoV-2 RNA PCR Positive
== END 2021-04-06 09:11 | disposition home or self-care (01) ==
PROVIDERS: Emergency Provider Nurse Practitioner Family
DX: U07.1 COVID-19 (principal)
CPT/HCPCS: 87804; 99213; C9803; G0463; U0003; U0005

== ENCOUNTER 2021-09-20 23:35 | Emergency (ER) | payer OTHER, SELFPAY ==
[2021-09-20 23:36] VITALS: BP 108/64; PULSE 95; RESP 18; TEMP 37; O2SAT 99
--- NOTE | 2021-09-21 02:25 | ED.EAR ---
HPI - Ear Problem General Chief complaint: Ear Stated complaint: earache Time Seen by Provider: 09/21/21 00:03 History of Present Illness HPI Narrative: Patient is a 31-year-old female here for evaluation of right ear pain for the past several days. The pain came on after she was [place]. She was evaluated in urgent care facility upon symptom onset, was given eardrops, but states that the pain is still present. Denies relief after ibuprofen or Tylenol. Denies any fevers, chills, nausea, vomiting, decreased hearing, tinnitus. She is not diabetic. Related Data Home Medications Medication Instructions Recorded Confirmed [id number] 3.5 drp 09/20/21 mg-10,000 unit/mL-1 % ear drops,susp Allergies Allergy/AdvReac Type Severity Reaction Status Date / Time PINE NEEDLE OIL Allergy Intermediate SWELLING,DIFFICULTLY Uncoded 09/20/21 23:43 BREATHING Review of Systems Review of Systems: Gen.: Denies fevers or chills Eyes: Reports ear pain ENT: Denies congestion Respiratory: Denies shortness of breath or cough CV: Denies chest pain or palpitations GI: Denies abdominal pain nausea, emesis or diarrhea denies burning, urgency, frequency or hematuria Musculoskeletal: Denies back pain or muscle pain Neuro: Denies numbness, tingling, weakness or focal weakness Skin: Denies rash Except as documented, all other systems reviewed and negative PMFSH Past Medical History Medical History Anxiety Missed x2 02/2016, 10/2015 Vaginal delivery x3 08/02/2018 03/27/2017 Family History Family History Mother Anemia Grandparent Acute myocardial infarction Family history of cardiovascular disease Sibling Hypothyroidism Social History Social History Smoking status: Never smoker Alcohol intake: current Alcohol use details: 0ne to two drinks per month. Substance use: unknown Spiritual care concerns: No Exam Narrative: Gen: Alert, oriented, no acute distress Eyes: EOMI, no icterus Ears: Pain with movement of tragus on the right. External ear canal is swollen, unable to visualize TM. Left TM is clear. No mastoid tenderness bilaterally. Pulm: Respirations even and unlabored, symmetric thorax expansion, no audible stridor or visible cyanosis CV: Regular rate per telemetry GI: No distension, no voluntary/involuntary guarding Neuro: AOx4, moves all extremities without apparent difficulty or weakness, follows commands Skin: No jaundice, no visible bruising, rashes, lesions or wounds on exposed skin Psych: Normal mood/affect, insight/judgement good, adequate fund of knowledge, recent/remote memory intact Course Vital Signs Vital signs: Vital Signs Temperature 98.6 F 09/20/21 23:36 Pulse Rate 95 09/20/21 23:36 Respiratory Rate 18 09/20/21 23:36 Blood Pressure 108/64 09/20/21 23:36 Pulse Oximetry 99 09/20/21 23:36 Oxygen Delivery Room Air 09/20/21 23:36 Temperature 98.6 F 09/20/21 23:36 Pulse Rate 95 09/20/21 23:36 Respiratory Rate 18 09/20/21 23:36 Blood Pressure 108/64 09/20/21 23:36 Pulse Oximetry 99 09/20/21 23:36 Oxygen Delivery Room Air 09/20/21 23:36 Medical Decision Making MDM Narrative Medical decision making narrative: 31-year-old female here for evaluation of continued right ear pain over the past several days with minimal relief from abx drop from UC. On exam it appears she has otitis externa; no mastoid tenderness to suggest mastoiditis, no immunocompromise history to suggest malignant otitis externa, doubt herpes zoster oticus. An ear wick was placed given that her external ear was swollen and drops were placed. Counselled on ear wick care. Will switch ear drop to different and will also provide oral antibiotics in case there is a compo
== END 2021-09-21 01:03 | disposition home or self-care (01) ==
PROVIDERS: Emergency Provider Emergency Medicine
DX: H60.91 Unspecified otitis externa, right ear (principal); H66.91 Otitis media, unspecified, right ear
CPT/HCPCS: 99283

== ENCOUNTER 2022-01-16 08:30 | Outpatient (RCR) | payer OTHER, SELFPAY ==
--- NOTE | 2022-01-02 10:00 | PTOPEVAL1 ---
Assessment and note entered by Barbie Leblanc DPT Evaluation Information Assessment Status Evaluation Reported Pain Level Pain Score 0: Self Report Additional Pain Score Comments Pt reports urinary incontinence. Noticed originally after her first and has increased in frequency since then. Reports she avoids anything that will cause incontinence like jumping, sneezing, intercourse. States volume is enough to go change her clothes after. 2018, 2018, and 2020 delivered babies- all vaginal deliveries , no complications. No other gynecological problems. Urinates 5 times a day and usually none at night. Can hold urine about 15 minutes before needing to void. BM 5 times a week, generally no pain but sometimes mild constipation. Also reports a history of pelvic pain with intercourse that started prior to her pregnancies, up to 7/10 highest. Assessment PT Clinical Summary The patient is presenting to skilled therapy with a progressing history of urinary incontinence and also reports a history of pelvic pain. She presents with decreased pelvic floor strength and endurance and pain with palpation, as well as decreased core strength which are contributing to her pain and her incontinence. She will highly benefit from skilled therapy to address her impairments and safely return to her prior level of function. Plan of Care Interventions Electrical Stimulation,Hot Pack/Cold Pack,Manual Therapy,Neuro Re-education,Patient/Caregiver Education, Therapeutic Activities,Therapeutic Exercise,Self-Care/Home Management These treatments will address the objective and functional deficits as defined above. The patient will be advanced safely and appropriately in order for the patient to progress towards his/her prior level of function. Additional exercises will be introduced and as well as a comprehensive home exercise program upon discharge, if needed, ?to ensure carryover of functional gains achieved in the clinic. This treatment plan has been reviewed and agreement upon by the patient.
--- NOTE | 2022-01-09 12:28 | PCPTNOTE ---
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
--- NOTE | 2022-01-23 12:37 | PCPTNOTE ---
Patient did not show up for scheduled appointment this date.
--- NOTE | 2022-03-27 15:35 | PTOPDC ---
Assessment and note entered by Barbie Leblanc, DPT Evaluation Information Assessment Status Discharge - Pt Not Present Assessment PT Clinical Summary Patient has not attended therapy since 01/15/22. Due to our attendance policy she will be discharged at this time. A new order will be required to resume therapy at a later date.
== END 2022-03-28 13:24 | disposition home or self-care (01) ==
LOC: ANHGOSHPT 08:30
PROVIDERS: PCP Family Medicine; Visit Provider Student in an Organized Health Care Education/Training Program
DX: R32 Unspecified urinary incontinence (principal)
CPT/HCPCS: 97110; 97112; 97161; 99199

== ENCOUNTER → 2022-01-17 14:03 | Outpatient (CLI) | payer OTHER, SELFPAY ==
--- NOTE | ~2022-01-17 | XR_ITS ---
EXAMINATION: XR chest 2V Exam Date/Time: 01/17/2022 14:00 POUND KEEPER HISTORY: R06.02 - Shortness of breath Comparison: None available. RESULT: Lines, tubes, and devices: None. Lungs and pleura: Ill-defined, patchy airspace opacities in the left lower lobe. Cardiomediastinal silhouette: Stable. Other: No acute osseous or upper abdominal finding. IMPRESSION: Left lower lobe opacities may reflect pneumonia in the appropriate clinical context. Reviewed, dictated and finalized at location K. D KEEPER IMPRESSION: Left lower lobe opacities may reflect pneumonia in the appropriate clinical con text.
[2022-01-17 13:40] VITALS: BP 99/70; PULSE 99; RESP 16; TEMP 36.9; O2SAT 99
== END ==
PROVIDERS: PCP Nurse Practitioner; Visit Provider Nurse Practitioner
DX: R06.02 Shortness of breath (principal); R91.8 Other nonspecific abnormal finding of lung field
CPT/HCPCS: 71046

== ENCOUNTER 2022-01-29 11:18 | Outpatient (CLI) | payer OTHER, SELFPAY ==
--- NOTE | ~2022-01-29 | CT_ITS ---
EXAMINATION: CT diagnostic chest w con DATE: 01/29/2022 11:34 INDICATION: Persistent cough. Pneumonia. TECHNIQUE: Computed tomography (CT) of the chest was performed with 75 cc Omnipaque 350 intravenous c ontrast. The dose-length product was 134.80 mGy-cm. Automated exposure control and iterative reconstruction technique were employed. COMPARISON: None FINDINGS: No significant vascular abnormality. No lymphadenopathy. No thoracic lymphadenopathy. Upper abdomen is unremarkable. No pneumothorax. No endobronchial lesions. No endobronchial lesions. No foc al airspace consolidation. No pneumothorax. No suspicious pulmonary nodules or masses. No endobronchi al lesions. No acute osseous abnormality. IMPRESSION: 1. No acute cardiopulmonary disease. Reviewed, dictated and finalized at location A. SER
== END 2022-01-29 11:19 | disposition home or self-care (01) ==
LOC: ANHIMG 11:19
PROVIDERS: PCP Nurse Practitioner; Visit Provider Nurse Practitioner
DX: J18.9 Pneumonia, unspecified organism (principal); R05.9 Cough, unspecified
CPT/HCPCS: 71260; Q9967

== ENCOUNTER 2022-05-21 08:21 | Emergency (ER) | payer OTHER, SELFPAY ==
[2022-05-21 08:32] VITALS: BP 98/71; PULSE 84; RESP 16; TEMP 36.3; O2SAT 100
[2022-05-21 08:33] VITALS: BP 98/71; PULSE 84; RESP 16; TEMP 36.3; O2SAT 100
--- NOTE | 2022-05-21 08:48 | ED.EAR ---
HPI - Ear Problem General Chief complaint: Ear Stated complaint: rt ear infection Time Seen by Provider: 05/21/22 08:48 Source: patient, RN notes reviewed and old records reviewed Mode of arrival: ambulatory Limitations: no limitations History of Present Illness HPI Narrative: 32-year-old female who presents to [facility] with complaints pain to her right ear. Patient states her right ear is always itching and she scratched her right ear and removed a small scab. She states since then she has had pain to the right ear with some tragal tenderness noted on exam. Patient has small red raised area at entrance of ear canal. Patient has not taken any [id number] medications for her discomfort. MD Complaint: ear pain Location: right ear Duration: constant Severity: moderate Discharge from ear: Reports no Treatment prior to arrival: none Related Data Allergies Allergy/AdvReac Type Severity Reaction Status Date / Time PINE NEEDLE OIL Allergy Intermediate SWELLING,DIFFICULTLY Uncoded 05/21/22 08:32 BREATHING Review of Systems Review of Systems: CONSTITUTIONAL: Denies malaise, chills, sweats, or fever. EYES: Denies visual changes, redness, or discharge. ENT: Reports no rhinorrhea, congestion, sinus pain,positive right otalgia denies sore throat. CARDIOVASCULAR: Denies chest pain, palpitations, or edema. RESPIRATORY: Reports no cough.? Denies dyspnea. GASTROINTESTINAL: Denies abdominal pain, nausea, vomiting, diarrhea SKIN: Denies rash or itching. MUSCULOSKELETAL: Denies myalgia. NEUROLOGIC: Denies headache. All systems reviewed & are unremarkable except as noted in HPI and below PMFSH Past Medical History Medical History Anemia Anxiety Encounter for visit size inconsistent with dates Low TSH level Miscarriage Missed x2 02/2016, 10/2015 Vaginal delivery x3 08/02/2018 03/27/2017 Family History Family History Mother Anemia Grandparent Acute myocardial infarction Family history of cardiovascular disease Sibling Hypothyroidism Social History Social History Smoking status: Never smoker Alcohol intake: current Alcohol use details: 0ne to two drinks per month. Substance use: unknown Substance use type: does not use Lack of Transportation: No Lack of Food: Never True Current Housing: I Have Housing Concerned About Future Housing: No Difficulty Paying Gas/Electric Bills: Decline to Answer Difficulty Paying for Meds: No Currently Unemployed: No Education: Associate Degree Difficulty w/ Childcare or Family Care: Decline to Answer Spiritual care concerns: No Comments At time of signature, agree with nursing past medical, surgical, social and family history. There is no relevant family history pertinent to the presenting complaint Exam Narrative: GENERAL: Well-appearing, well-nourished, and in no acute distress. HEAD: Normocephalic EYES: PERRLA, conjunctivae clear ENT: Nares clear, turbinates edematous and erythematous, clear discharge. Mucous membranes moist. TM pearly jacques with dull light reflex bilaterally; right tragal tenderness, small red raised area at entrance to ear canal right. Oropharynx erythematous without lesions. Tonsils not enlarged and without exudate, no drooling, no hoarseness, no trismus, uvula midline. NECK: Supple. No lymphadenopathy CHEST: Clear to auscultation, breath sounds equal. No wheezing, rhonchi, rales, or stridor. No respiratory distress, speaks in full sentences.SAO2 100% on room air HEART: Regular rate and rhythm. No murmur heard. SKIN: Warm, dry, no rash. NEURO: Alert and oriented x3. PSYCH: Normal mood and affect Course Course Emergency Course: Patient is aware of diagnosis, understands and agrees to treatment keyanna
== END 2022-05-21 09:06 | disposition home or self-care (01) ==
PROVIDERS: Emergency Provider Registered Nurse; PCP Nurse Practitioner
DX: H60.501 Unspecified acute noninfective otitis externa, right ear (principal)
CPT/HCPCS: 99213; G0463

== ENCOUNTER 2022-05-21 13:10 | Emergency (ER) | payer OTHER, SELFPAY ==
[2022-05-21 13:22] VITALS: BP 115/66; PULSE 101; RESP 20; TEMP 36.9; O2SAT 100
--- NOTE | 2022-05-21 16:28 | ED.GENADULT ---
HPI - General Adult General Chief complaint: Psychiatric Symptoms Stated complaint: Depression Time Seen by Provider: 05/21/22 16:17 Source: RN notes reviewed History of Present Illness HPI narrative: Patient presents emergency department from home for depression. Patient states that since the of her third daughter approximately year ago she has been having increasing issues with anxiety and depression. States that symptoms of gotten worse over the past several weeks with daily panic attacks states that she does have an appointment scheduled with a psychiatrist at the beginning of June but cannot wait that long states she is on fluoxetine for her depression. She denies any suicidal or homicidal ideation she states that she has been under increased stress at work as well she denies any fevers or chills or any recent illnesses Related Data Allergies Allergy/AdvReac Type Severity Reaction Status Date / Time PINE NEEDLE OIL Allergy Intermediate SWELLING,DIFFICULTLY Uncoded 05/21/22 08:32 BREATHING Review of Systems Review of Systems: Gen.: Denies fevers or chills ENT: Denies congestion Respiratory: Denies shortness of breath or cough CV: Denies chest pain or palpitations GI: Denies abdominal pain nausea, emesis or diarrhea Musculoskeletal: Denies back pain or muscle pain Neuro: Denies numbness, tingling, weakness or focal weakness Skin: Denies rash Psych: See HPI Except as documented, all other systems reviewed and negative PMFSH Past Medical History Medical History Anemia Anxiety Encounter for visit size inconsistent with dates Low TSH level Miscarriage Missed x2 02/2016, 10/2015 Vaginal delivery x3 08/02/2018 03/27/2017 Family History Family History Mother Anemia Grandparent Acute myocardial infarction Family history of cardiovascular disease Sibling Hypothyroidism Social History Social History Smoking status: Never smoker Alcohol intake: current Alcohol use details: 0ne to two drinks per month. Substance use: unknown Substance use type: does not use Lack of Transportation: No Lack of Food: Never True Current Housing: I Have Housing Concerned About Future Housing: No Difficulty Paying Gas/Electric Bills: Decline to Answer Difficulty Paying for Meds: No Currently Unemployed: No Education: Associate Degree Difficulty w/ Childcare or Family Care: Decline to Answer Spiritual care concerns: No Exam Narrative: APPEARANCE: No acute distress, nontoxic, resting in bed EYES: EOMI HEENT: Normocephalic, atraumatic, OMM RESPIRATORY: No respiratory distress Clear to auscultation bilaterally with no rhonchi wheezing or rales. CARDIOVASCULAR: Regular rate and rhythm without murmurs rubs or gallops. ABDOMINAL: Soft, nontender, nondistended, no rebound or guarding MUSCULOSKELETAl: Moves all extremities. No clubbing, cyanosis or edema. NEURO: Awake and alert. Following commands, speech normal, no focal deficits SKIN:: Warm, dry. No rashes lesions or abrasions PSYCHIATRIC: Anxious in appearance and tearful Course Course Emergency Course: Patient given Ativan with improvement anxiety Patient evaluated by [facility] crisis staff physical therapy assistant. At this time feel the patient may be discharged home with safety plan Patient reevaluated myself denies any suicidal homicidal ideation does have appointment with therapist this week Discussed with patient results of workup and diagnosis. Discussed need for follow-up with primary care, proper use of medication, and reasons to return to the emergency department. Patient understands and agrees to current treatment plan discussed with patient we will give small amount of Xanax Vital Signs Vital signs: Vital Signs Temperature 98.4 F 05/21/22 13:2
[2022-05-21 16:40] LABS: Basophils Percent Auto 0.4 % (0.2-1.2); Eosinophils Absolute Auto 0.1 K/mm3 (0-0.3); Eosinophils Percent Auto 1.6 % (0-4.4); Hematocrit 37.2 % (37.0-47.0); Hemoglobin 12.1 g/dL (12.0-15.0); Immature Granulocyte Absolute 0.02 K/mm3 (0.00-0.031); Immature Granulocyte Percent A 0.3 % (0-0.5); Lymphocytes Absolute Auto 2.12 K/mm3 (0.9-3.2); Lymphocytes Percent Auto 28.5 % (18.3-44.2); Mean Corpuscular HGB Conc 32.5 g/dl (32-36); Mean Corpuscular Volume 89.2 fl (80-100); Mean Platelet Volume 11.5 fl (7.4-10.4); Monocytes Absolute Auto 0.4 K/mm3 (0.1-0.6); Monocytes Percent Auto 5.4 % (2.6-8.5); Neutrophils Absolute Auto 4.8 K/mm3 (1.3-6.7); Neutrophils Percent Auto 63.8 % (45.5-73.1); Platelet Count Result 203 k/mm3 (150-375); Red Blood Count 4.17 M/mm3 (4.2-5.4); Red Cell Distribution Width 12.5 % (11.5-14.5); White Blood Count 7.4 K/mm3 (4.5-10.0)
[2022-05-21 16:45] LABS: Appearance Urine Clear (Clear); Bacteria Urine Rare /hpf; Bilirubin Urine Negative (Negative); Blood Urine Negative (Negative); Color Urine Yellow (Yellow); Glucose Urine UA Negative (Negative); Ketones Urine Negative (Negative); Leukocyte Esterase Ur 2+ LEU/UL (Negative); Nitrate Urine Negative (Negative); Non Pathogenic Casts 0-2; Protein Urine Negative (Negative); RBC Urine 0-2 /hpf (0-2); Squamous Epithelial Cell Urine Few /hpf (Few); pH Urine 6.5 (5.0-9.0)
[2022-05-21] MEDS: LORazepam (*CRX) 0.5 MG TABLET PO (16:49)
[2022-05-21 16:50] LABS: Ethanol < 10 mg/dL (<10)
[2022-05-21 16:58] LABS: Alanine Aminotransferase 18 U/L (6-35); Albumin Level 4.2 g/dL (3.5-5.1); Alkaline Phosphatase 52 U/L (38-126); Anion Gap 9 mmol/L (8-16); Aspartate Amino Transferase 19 U/L (14-36); Bilirubin,Total 0.4 mg/dL (0.2-1.3); Blood Urea Nitrogen 13 mg/dL (7-17); Calcium 8.6 mg/dL (8.4-10.2); Carbon Dioxide 25 mmol/L (22-30); Chloride 105 mmol/L (98-107); Estimated CRCL calculation 98 ml/min; Estimated Glomerular Filt Rate > 60; Glucose 112 mg/dL (65-110); Potassium 3.9 mmol/L (3.4-5.0); Sodium 139 mmol/L (137-145)
[2022-05-21 16:59] LABS: Add Urine Microscopic? YES
[2022-05-21 17:03] LABS: Amphetamine Screen Urine Negative (Negative); Barbiturate Screen Urine Negative (Negative); Benzodiazepines Screen Urine Negative (Negative); Cannabinoid Screen Urine Positive (Negative); Cocaine Screen Urine Negative (Negative); Methadone Screen Urine Negative (Negative); Opiate Screen Urine Negative (Negative); Phencyclidine Screen Urine Negative (Negative)
[2022-05-21 17:29] LABS: Thyroid Stimulating Hormone 0.878 uIU/mL (0.465-4.680)
[2022-05-21 18:57] VITALS: BP 118/64; PULSE 66; RESP 16; O2SAT 100
== END 2022-05-21 18:58 | disposition home or self-care (01) ==
PROVIDERS: Emergency Provider Emergency Medicine; PCP Nurse Practitioner
DX: F32.A Depression, unspecified (principal); F41.9 Anxiety disorder, unspecified; N39.0 Urinary tract infection, site not specified; Z86.2 Personal history of diseases of the blood and blood-forming organs and certain disorders involving the immune mechanism; Z79.899 Other long term (current) drug therapy
CPT/HCPCS: 36415; 80053; 80307; 81001; 81025; 84443; 85025; 87086; 99283; 99284; A9270

== ENCOUNTER 2023-01-24 16:18 | Emergency (ER) | payer OTHER, SELFPAY ==
--- NOTE | ~2023-01-24 | CT_ITS ---
EXAMINATION: CT abdomen pelvis w con DATE: 01/24/2023 20:31 INDICATION: Right lower quadrant abdominal pain and nausea TECHNIQUE: Computed tomography (CT) of the abdomen and pelvis was performed with 100 mL Omnipaque-350 intravenous contrast. Automated exposure control and iterative reconstruction technique were employe d. The dose-length product was 231.94 mGy-cm. COMPARISON: None FINDINGS: Lung bases are clear. Heart size is normal. No pericardial or pleural effusion. Liver, gallbladder, s pleen, pancreas, bilateral adrenal glands and kidneys are normal. Bowels including the appendix are n ormal. Bladder, uterus and left adnexa are unremarkable. There are prominent enhancing gonadal veins at the right adnexa which could be seen with pelvic vascular congestion syndrome. Minimal amount of l ikely physiologic free fluid in the cul-de-sac. No abscess or free intraperitoneal gas. No pathologic ally enlarged abdominal and pelvic lymphadenopathy. Left-sided L5 pars interarticularis defect. IMPRESSION: 1. No acute intra-abdominal/pelvic process. Specifically the appendix is normal. Reviewed, dictated and finalized at location A. REPAIRER TRIMMER DIES IMPRESSION: 1. No acute intra-abdominal/pelvic process. Specifically the appendix is normal .
--- NOTE | ~2023-01-24 | US_ITS ---
EXAMINATION: US pelvic complete w TV DATE: 01/24/2023 22:16 INDICATION: Right lower quadrant abdominal pain. TECHNIQUE: Multiple transabdominal and endovaginal sonographic images of the pelvis were obtained. COMPARISON: None. FINDINGS: The uterus measures 8.0 x 3.7 x 5.2 cm. The endometrial complex measures 13-14 mm in thickness. The right ovary measures 4.0 x 2.3 x 2.3 cm. The left ovary measures 2.8 x 2.7 x 1.[address] A few sub[address] anechoic follicles are seen in both ovaries. After flow with arterial waveforms identified in bot h ovaries on color Doppler. There is small amount of anechoic likely physiologic free fluid in the pe lvis. IMPRESSION: 1. Normal pelvic ultrasound. Reviewed, dictated and finalized at location A. [facility]
[2023-01-24 16:24] VITALS: BP 102/70; PULSE 83; RESP 14; TEMP 36.3; O2SAT 100
[2023-01-24 18:36] LABS: Basophils Absolute Auto 0.1 K/mm3 (0.0-0.1); Basophils Percent Auto 0.6 % (0.2-1.2); Eosinophils Absolute Auto 0.1 K/mm3 (0-0.3); Eosinophils Percent Auto 1.4 % (0-4.4); Hematocrit 38.8 % (37.0-47.0); Hemoglobin 12.4 g/dL (12.0-15.0); Immature Granulocyte Absolute 0.03 K/mm3 (0.00-0.031); Immature Granulocyte Percent A 0.3 % (0-0.5); Lymphocytes Absolute Auto 2.32 K/mm3 (0.9-3.2); Lymphocytes Percent Auto 23.7 % (18.3-44.2); Mean Corpuscular Hemoglobin 28.3 pg (26-34); Mean Corpuscular Volume 88.6 fl (80-100); Mean Platelet Volume 11.6 fl (7.4-10.4); Monocytes Absolute Auto 0.6 K/mm3 (0.1-0.6); Neutrophils Absolute Auto 6.6 K/mm3 (1.3-6.7); Platelet Count Result 268 k/mm3 (150-375); Red Blood Count 4.38 M/mm3 (4.2-5.4); Red Cell Distribution Width 12.2 % (11.5-14.5); White Blood Count 9.8 K/mm3 (4.5-10.0)
[2023-01-24 18:42] LABS: Appearance Urine Cloudy (Clear); Bacteria Urine Rare /hpf; Bilirubin Urine Negative (Negative); Blood Urine Negative (Negative); Color Urine Yellow (Yellow); Glucose Urine UA Negative (Negative); Ketones Urine Negative (Negative); Leukocyte Esterase Ur 1+ LEU/UL (Negative); Nitrate Urine Negative (Negative); Non Pathogenic Casts 0-2; Protein Urine Negative (Negative); RBC Urine 0-2 /hpf (0-2); Specific Grav Ur 1.015 (1.001-1.035); Squamous Epithelial Cell Urine Few /hpf (Few); Urobilinogen Urine 0.2 mg/dL (<2.0)
[2023-01-24 18:43] LABS: Add Urine Microscopic? YES
[2023-01-24 18:47] LABS: Alanine Aminotransferase 16 U/L (6-35); Albumin Level 4.5 g/dL (3.5-5.1); Alkaline Phosphatase 62 U/L (38-126); Anion Gap 11 mmol/L (8-16); Aspartate Amino Transferase 18 U/L (14-36); Bilirubin,Total 0.4 mg/dL (0.2-1.3); Blood Urea Nitrogen 10 mg/dL (7-17); Calcium 9.2 mg/dL (8.4-10.2); Carbon Dioxide 25 mmol/L (22-30); Chloride 102 mmol/L (98-107); Estimated CRCL calculation 90 ml/min; Estimated Glomerular Filt Rate > 60; Glucose 110 mg/dL (65-110); Lipase 114 U/L (23-300); Potassium 3.9 mmol/L (3.4-5.0); Sodium 138 mmol/L (137-145)
--- NOTE | 2023-01-24 19:52 | ED.ABDPAIN ---
HPI - Abdominal Pain General Chief Complaint: Abdominal Pain Stated Complaint: R ABD PAIN SINCE 1200 TODAY Time Seen by Provider: 01/24/23 18:01 Source: patient Mode of arrival: ambulatory Limitations: no limitations History of Present Illness HPI narrative: Patient is a 32-year-old female who presents the ED with report of right lower quadrant abdominal pain. Patient reports pain began today around 12:30 p.m.. Progressively worsened throughout the day, worse with movement, walking around. Radiates around to her right low back. She took Tylenol earlier without improvement. Reports nausea, no vomiting. Denies diarrhea, constipation, fevers, dysuria, hematuria. No history of similar pain. No history of kidney stones, gallstones, ovarian cyst. Related Data Home Medications Medication Instructions Recorded Confirmed ofloxacin 0.3 % eye drops 1 drp EACH EYE QID 07/11/22 Allergies Allergy/AdvReac Type Severity Reaction Status Date / Time PINE NEEDLE OIL Allergy Intermediate SWELLING,DIFFICULTLY Uncoded 01/24/23 16:26 BREATHING Review of Systems Review of Systems: CONSTITUTIONAL: Denies fever, chills, or sweats. CARDIOVASCULAR: Denies chest pain. RESPIRATORY: Denies dyspnea. GASTROINTESTINAL: See HPI. GENITOURINARY: Denies dysuria or hematuria. SKIN: Denies rash or itching. MUSCULOSKELETAL: See HPI. NEUROLOGIC: Denies headache, numbness, or weakness. All systems reviewed & are unremarkable except as noted in HPI and below PMFSH Past Medical History Medical History Anemia Anxiety Encounter for visit size inconsistent with dates Low TSH level Miscarriage Missed x2 02/2016, 10/2015 Vaginal delivery x3 08/02/2018 03/27/2017 Family History Family History Mother Anemia Grandparent Acute myocardial infarction Family history of cardiovascular disease Sibling Hypothyroidism Social History Social History Smoking status: Never smoker Alcohol intake: current Alcohol use details: 0ne to two drinks per month. Substance use: unknown Substance use type: does not use Lack of Transportation: No Lack of Food: Never True Current Housing: I Have Housing Concerned About Future Housing: No Difficulty Paying Gas/Electric Bills: Decline to Answer Difficulty Paying for Meds: No Currently Unemployed: No Education: Associate Degree Difficulty w/ Childcare or Family Care: Decline to Answer Living arrangements: with family Occupation/Education: occupation Gender identity (if verbalized by the patient): Female Sexual Orientation (if Verbalized by the Patient): Straight or Heterosexual Spiritual care concerns: No Exam Narrative: GENERAL: Well appearing, well-nourished, non-toxic, in no acute distress. HEAD: Normocephalic, atraumatic. NECK: Supple. No adenopathy, no masses. RESPIRATORY: Airway patent, respirations nonlabored. Clear to auscultation bilaterally, no rales, rhonchi, wheezing. CARDIOVASCULAR: Regular rate and rhythm without murmurs, rubs, or gallops. Radial pulses 2+ and equal bilaterally. ABDOMINAL: Soft, focal tenderness in RLQ reproducing pain. Mild tenderness noted to left lower quadrant and right upper abdomen with discomfort reported in right lower abdomen with palpation. Nondistended, no hepatosplenomegaly. Normoactive BS. MUSCULOSKELETAL: Moves all extremities. No gross deformities. SKIN: Warm, dry, normal color. No rashes. NEURO: A&O X3. Speech clear. Cranial nerves II-XII grossly intact. Steady gait. No ataxic movements. PSYCHIATRIC: Appropriate mood and affect. Normal interaction. Course Vital Signs Vital signs: Vital Signs Temperature 97.3 F L 01/24/23 16:24 Pulse Rate 83 01/24/23 16:24 Respiratory Rate 14 01/24/23 16
[2023-01-24 20:05] LABS: Pregnancy On Board Control Positive; Urine Pregnancy Test Negative
[2023-01-24 23:19] VITALS: BP 106/59; PULSE 84; RESP 14; TEMP 36.4; O2SAT 100
== END 2023-01-24 23:20 | disposition home or self-care (01) ==
PROVIDERS: Emergency Provider Physician Assistant; PCP Nurse Practitioner
DX: R10.31 Right lower quadrant pain (principal); N94.89 Other specified conditions associated with female genital organs and menstrual cycle; Z86.2 Personal history of diseases of the blood and blood-forming organs and certain disorders involving the immune mechanism
CPT/HCPCS: 36415; 74177; 76830; 76856; 80053; 81001; 81025; 83690; 85025; 87086; 99284; Q9967